=== PATIENT | female | born 2005 | race Caucasian/White ===

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

== ENCOUNTER 2024-07-11 08:23 | Outpatient (CLI) | payer BC, SELFPAY ==
--- NOTE | ~2024-07-11 | US_ITS ---
US breast BI complete INDICATION: Bilateral breast and nipple pain. Nipple discharge. TECHNIQUE: Dedicated right and left breast ultrasound COMPARISON: No prior studies for comparison. FINDINGS: The breasts breast is/are composed of normal heterogeneous echotexture without focal solid or cystic mass. IMPRESSION: 1: Normal bilateral breast ultrasound. BI-RADS CATEGORY 1 - NEGATIVE Reviewed, dictated and finalized at location [facility]. STRIPPER
== END 2024-07-11 08:24 | disposition home or self-care (01) ==
LOC: MICIMG 08:25
PROVIDERS: PCP Nurse Practitioner Women's Health; Visit Provider Nurse Practitioner Women's Health
DX: N64.4 Mastodynia (principal); N64.52 Nipple discharge
CPT/HCPCS: 76641